=== PATIENT | male | born 1950 | race Two or more races ===

== ENCOUNTER → 2018-04-19 | Emergency (ER) | payer MEDICARE, MEDICAID ==
[~2018-04-19] VITALS: Ht 182.9 cm; Wt 96.8 kg
[~2018-04-19] MED LIST: apixaban 5mg tablet PO SCH; aspirin 81mg tab.chew PO ONE; carVEDilol 3.125mg tablet PO SCH; diltiazem 5mg/ml 5ml inj. IV ONE; metFORMIN 500mg tablet PO ONE
[2018-04-19 11:21] VITALS: BP 138/71
--- NOTE | 2018-04-19 21:42 | NUR ---
GIVEN SACK LUNCH AND WATER
== END | disposition home or self-care (01) ==
LOC: ER 11:08
DX: R06.02 Shortness of breath (principal); Z99.81 Dependence on supplemental oxygen
CPT/HCPCS: 71045; 82948; 99284